=== PATIENT | female | born 1970 | race Caucasian/White ===

== ENCOUNTER 2019-05-22 10:28 | Day surgery (SDC) | payer OTHER ==
[2019-05-15 13:41] LABS: BASOPHILS 0.5 % (0.0-2.0); EOSINOPHILS 0.2 % (0.0-3.0); HEMATOCRIT 40.1 % (37.0-47.0); HEMOGLOBIN 13.5 gm/dL (12.0-15.0); LYMPHOCYTES 17.9 % (24.0-44.0); MCH 31.7 pg (26.0-34.0); MCHC 33.8 g/dL (28.0-37.0); MCV 93.8 fL (80.0-100.0); MONOCYTES 2.5 % (1.0-8.0); PLATELET COUNT 400 thou/uL (150-400); POLYS 78.9 % (36.0-66.0); RBC 4.27 mil/uL (4.20-5.00); RDW 12.3 % (10.5-14.5); WBC 7.6 thou/uL (4.0-11.0)
[2019-05-15 13:53] LABS: CALCIUM 9.7 mg/dL (8.5-10.1); CREATININE 0.8 mg/dL (0.6-1.0); POTASSIUM 4.4 mmol/L (3.5-5.1); TOTAL BILIRUBIN 0.1 mg/dL (<0.1-1.0); TOTAL PROTEIN 7.2 g/dL (6.4-8.2)
[~2019-05-22] VITALS: Ht 162.6 cm; Wt 81.2 kg
[~2019-05-22 10:28] MED LIST: CLARITIN10 M2 PO; HYDROCODON-ACE1 EAC8 PO; HYDROXYCHLOROQ200 M1 PO; LASIX 40 MG TAB40 MG PO; MELOXICAM15 MG PO; PROTONIX40 M2 PO; VENLAFAXINE HCL75 M2 PO
[2019-05-22 11:59] VITALS: BP 100/53
--- NOTE | 2019-05-22 13:15 | H ---
[facility] [place] [address] HISTORY AND PHYSICAL Name: RASTA GILBERT Room #: 150[address] [place] [address] M..#: [id number] Admission: 05/22/19 Attend Phys: Hossein Le MD Discharge: Date of : 72 Report #: [id number] THIS REPORT FOR: //name// CC: [facility] physician/PCP Hossein Le DICTATED BY: Sydney Lynn NP PREOPERATIVE HISTORY AND PHYSICAL HISTORY OF PRESENT ILLNESS: The patient is a 49-year-old woman who underwent cervical surgery in 2006 at C6-C7 and did very well. She says that a few months ago, she developed bilateral shoulder pain and pain in her arms. There was no inciting event. She says at its worst, her pain can reach 8/10. Activity tends to make it worse. Rest and a heating pad as well as pain medication help her. She is taking [place] and meloxicam. PAST MEDICAL HISTORY: Arthritis, hepatitis, nephrolithiasis, MRSA infection, RA. PAST SURGICAL HISTORY: Hysterectomy, ACDF C6-C7 in 2006. MEDICATIONS: Meloxicam, [place], pantoprazole, venlafaxine, Claritin. ALLERGIES: No known drug allergies. FAMILY HISTORY: Alzheimer disease, cancer, diabetes, heart disease, hypertension, NE. 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 She is single. Previously smoked, but recently quit. She drinks alcohol 1-2 times per week. REVIEW OF SYSTEMS: A 12-point review of systems was performed and is noncontributory except that mentioned above. PHYSICAL EXAMINATION: GENERAL: Alert, pleasant, in no acute distress. HEAD: Normocephalic, atraumatic. NECK: Mild to moderate tenderness with palpation of the posterior cervical region, well-healed cervical incision. SKIN: Warm and dry. MUSCULOSKELETAL: Cervical paraspinal muscle bulk is normal, cervical range of motion is restricted due to pain, normal range of motion of the upper extremities bilaterally. EXTREMITIES: No clubbing, cyanosis or edema. NEUROLOGIC: Alert and oriented x 3. Strength 5/5 in the bilateral upper and lower extremities except left biceps 4+/5, sensory was intact to light touch in [facility] [address] [place] [address] HISTORY AND PHYSICAL Name: RASTA GILBERT Room #: 150-10 [facility] M.R.#: [id number] Admission: 05/22/19 Attend Phys: Hossein Le MD Discharge: Date of : 72 Report #: [id number] the upper and lower extremities, reflexes were present and symmetric in the upper and lower extremities bilaterally except an absent biceps reflex bilaterally, knee jerks 2+. Normal gait. IMAGING: I reviewed a cervical MRI scan. On that study, there are postoperative changes from an ACDF at C6-C7. At C5-C6, there is severe cervical spinal stenosis with bilateral neural foraminal narrowing. ASSESSMENT AND PLAN: She has severe stenosis at C5-C6. We spoke about treatment options. She has no interest in epidural steroid injections or physical therapy. She was strongly like to go ahead with surgery. She has an occupation, this exposes her to the risk of falling, which would be dangerous for someone with her degree of cervical stenosis. We discussed all of this in detail including the technique, risks as well as expected postoperative course. We will make the arrangements. We did speak about smoking cessation and she has quit smoking. <ELECTRONICALLY SIGNED> By: Hossein Le MD 05/22/19 1315 [id number] [id number] Hossein Le MD /nt
--- NOTE | 2019-05-22 18:13 | NUR ---
ASSUMED CARE OF THE AT 1745. PTS PAIN IS BEING CONTROLLED BY PAIN MEDS, SEE EMAR. LUNGS ARE CLEAR AND PEDAL PULSES ARE STRONG. PT C/O BEING HOT, SKIN IS MOIST, TURNED ON FAN AND APPLIED ICEPACK TO THE NECK. RA IS 94%.CALL LIGHT WITHIN REACH AND BED IN THE LOWEST POSITION. WILL CONTINUE TO MONITOR THE PT.
[2019-05-22 18:15] VITALS: BP 124/80
[2019-05-22 19:27] VITALS: BP 117/76
[2019-05-22 20:33] VITALS: BP 108/76
[2019-05-23 00:17] VITALS: BP 104/72
--- NOTE | 2019-05-23 02:02 | NUR ---
ASSUMED CARE OF PT @1900 PT ASSESSED AT START OF SHIFT A&OX4 PAIN MEDS GIVEN AND CERVICAL COLAR INTACT. IV INTACT IN RT A/C AND FLUIDS INFUISING. MARIBETH HATCH, SCD' INTACT. CALL LIGHT IN REACH. PT AMBULATES TO THE BATHROOM. WILL CONT WITH POC TILL EOS.
[2019-05-23 04:08] VITALS: BP 135/85
[2019-05-23 07:52] VITALS: BP 107/69
[2019-05-23] MEDS ORDERED: ROBAXIN 750 MG750 MG PO (09:16)
[2019-05-23] MEDS ORDERED: COLACE 100 MG100 MG PO (09:17)
[2019-05-23] MEDS ORDERED: OXYCODONE-APAP1 TAB PO (09:18)
--- NOTE | 2019-05-23 09:33 | O ---
[facility] [place] [address] OPERATIVE REPORT Name: RASTA GILBERT Room #: 445-P [facility] M..#: [id number] Admission: 05/22/19 Attend Phys: Hossein Le MD Discharge: Date of : 72 Report #: [id number] THIS REPORT FOR: //name// CC: [facility] physician/PCP Hossein Le DATE OF SERVICE: 05/22/2019 PREOPERATIVE DIAGNOSES: 1. Cervical spinal stenosis and cervical radiculopathy, C5-C6. 2. Previous instrumented cervical fusion C6-7. PROCEDURE PERFORMED: Anterior cervical microdiscectomy, C5-C6; anterior cervical interbody fusion with allograft bone C5-C6; anterior cervical plate, C5-C6; there was also removal of hardware from C6. The operation was done with a multimodality monitoring including EMG, SSEP, fluoroscopy, microscopic dissection. Motor evoked potentials. SURGEON: Hossein Le M.D. SPONGE PRESS OPERATOR: Sydney Lynn NP assisted with the surgery. She assisted with exposure of the discectomy as well as the closure. OPERATIVE INDICATIONS: The patient is a pleasant 49-year-old who number of years ago underwent an anterior cervical discectomy and fusion at C6-C7 and did well. She then developed a significant neck, shoulder and bilateral arm pain and was found to have stenosis at C5-C6 along with severe neural foraminal narrowing bilaterally and I recommended after her symptoms slowly progressed, an anterior cervical discectomy and fusion at C5-C6. She understood the surgery, the risks. She understood the technique of the operation, she wish to go ahead. DESCRIPTION OF PROCEDURE: Following general endotracheal anesthesia, the patient was positioned supine on the operating room table. Head was rested on a donut in neutral position. The anterior cervical region was then prepped and draped in a standard fashion. MARIBETH hose and AV impulse boots have been applied for DVT prophylaxis. Microscope was draped. Fluoroscopy was draped and brought into the field. Ancef was given prior to surgery. Using fluoroscopic guidance, an incision was made from the midline around toward the right side in a skin crease. I dissected down through skin, subcutaneous tissue around the medial aspect of the sternocleidomastoid and carotid artery sheath after incising the platysma. I reflected the trachea and esophagus contralaterally and there was scar exposing the superior portion of the previously placed plate along with the C5-C6 disc and C5. I removed the screw from C6 and placed a pin in [facility] [address] [place] [address] OPERATIVE REPORT Name: RASTA GILBERT Room #: 445-P [facility] M.R.#: [id number] Admission: 05/22/19 Attend Phys: Hossein Le MD Discharge: Date of : 72 Report #: [id number] that location and also placed distraction pins into C5 and distracted the disc space, incised the annulus, and during this time, I brought in the microscope and the remainder of surgery was done with the microscope using microscopic technique. I removed the disc material and I worked posteriorly scraping and removing disc to the posterior aspect of the disc space. I drilled the posterior spurring, which was significant and then use a 1-2 mm Kerrisons removing the annulus. I did open the ligament with an arachnoid knife and worked bilaterally to ensure the neural foramina were opened. I then measured and placed a 6 mm interbody fusion cage, which was packed with allograft bone. I did drill away the top portion of the C6- C7 plate and placed in the C5-C6 plate and placed the screws into C6 and C5 after removing the distraction pins and covering those openings with bone wax. I did take fluoroscopic images which showed good position of the interbody fusion cage and plate. She was noted to have an excellent decompression and I felt the surgery went very well. <ELECTRONICALLY SIGNED> By: Hossein Le MD 05/23/19 0933 [id number] 1738 Hossein Le MD /nt
[2019-05-23 10:17] VITALS: BP 107/69
--- NOTE | 2019-05-23 10:33 | NUR ---
DISCHARGE PAPERS GONE OVER SIGNED AND COPY IN CHART IV ACSESS DCD AND RX GIVEN TRAIN CONTROL TECHNICIAN FOR DR ALBERTO HERE TO SEE AND DISCHARGE PATIENT. ALL BELONGINGS PACKED AND TO BE SENT WITH PATIENT.
[2019-05-23 10:36] VITALS: BP 107/69
== END 2019-05-23 10:30 | disposition home or self-care (01) ==
LOC: OR 10:28 → TBA 10:29 → OR 12:30 → EDSTATUS 17:44 → OR 17:44 → 4S 17:46 → OR 05-23 10:30
PROVIDERS: Neurological Surgery
DX: M48.02 Spinal stenosis, cervical region (principal); M54.12 Radiculopathy, cervical region; M19.90 Unspecified osteoarthritis, unspecified site; M06.9 Rheumatoid arthritis, unspecified; Z98.890 Other specified postprocedural states; Z86.19 Personal history of other infectious and parasitic diseases; Z79.899 Other long term (current) drug therapy; Z90.710 Acquired absence of both cervix and uterus; Z87.442 Personal history of urinary calculi; Z83.3 Family history of diabetes mellitus; Z82.49 Family history of ischemic heart disease and other diseases of the circulatory system
CPT/HCPCS: 10102; 50010; 50101; 50402; 50503; 51687; 51779; 52052; 53210; 54118; 55106; 55430; 56526; 56532; 56805; 62110; 62900; 65130; 70005